=== PATIENT | female | born 2000 | race Caucasian/White ===

== ENCOUNTER 2020-05-12 11:35 | Inpatient (IN) | payer MEDICAID ==
[2020-05-12] MEDS ORDERED: RINGERS SOLUTION,LACTATED 1,000 ML IV ONE (12:07)
[2020-05-12] MEDS ORDERED: RINGERS SOLUTION,LACTATED 1,000 ML IV PRN (12:07)
[2020-05-12 12:47] LABS: ABSOLUTE LYMPHOCYTES (AUTO) 1.8 10^3/uL (0.5-4.7); ABSOLUTE MONOCYTES (AUTO) 0.7 10^3/uL (0.1-1.4); ABSOLUTE NEUT (AUTO) 5.9 10^3/uL (1.7-8.2); BASOPHILS % (AUTO) 0.3 % (0-2); EOSINOPHILS % (AUTO) 0.3 % (0-6); HEMATOCRIT 32.3 % (36.0-47.0); HEMOGLOBIN 11.2 g/dL (12.0-15.5); LYMPHOCYTES % (AUTO) 21.7 % (13-45); MEAN CORPUSCULAR HGB CONC 34.5 g/dL (32.0-36.0); MEAN CORPUSCULAR VOLUME 78 fl (80-97); MONOCYTES % (AUTO) 7.9 % (3-13); PLATELET COUNT 180 10^3/uL (150-450); RED BLOOD COUNT 4.13 10^6/uL (3.72-5.28); RED CELL DISTRIBUTION WIDTH 15.4 % (11.5-14.0); SEGMENTED NEUTROPHILS % (AUTO) 69.8 % (42-78); TOTAL CELLS COUNTED % (AUTO) 100 %; WHITE BLOOD COUNT 8.4 10^3/uL (4.0-10.5)
[2020-05-12] MEDS ORDERED: EPHEDRINE SULFATE INJ 50 MG/1 ML AMPULE ONE (13:45)
[2020-05-12] MEDS ORDERED: ROPIVACAINE HCL 0.2% INJ/PF (2 MG/ML) 20 ML SDV ONE (13:46)
[2020-05-12] MEDS ORDERED: FENTANYL/BUPIVACAINE/NS/PF 300 MCG/150 ML RTUINJ EPI ONE (13:46)
--- NOTE | 2020-05-12 13:46 | Admission Physical ---
Datetime Report Generated by CPN: 05/12/2020 13:45 CURRENT ADMISSION Chief Complaint: Uterine Contractions; Suspected Ruptured Membranes Admit Impression : Term, Intrauterine Admit Plan: Admit to Unit; Initiate Labor Protocol ALLERGIES Medication Allergies: Yes Medication Allergies: amoxicillin (05/12/2020) Latex: No Latex Allergies Food Allergies: n/a Environmental Allergies: n/a OBSTETRICAL HISTORY EDC: 05/22/2020 00:00 : 1 Para: 0 Term: 0 : 0 SAB: 0 IAB: 0 Ectopic: 0 Livin Cesareans: 0 VBACs: 0 Multiple Births: 0 Gestational Diabetes: No Rh Sensitization: No Incompetent Cervix: No GEORGETTE: No Infertility: No ART Treatment: No Uterine Anomaly: No IUGR: No Hx Previous C/S: No Macrosomia: No Hx Loss/Stillborn: No PIH: No Hx : No Placenta Previa/Abruption: No Depression/PP Depression: No PTL/PROM: No Post Hemorrhage: No Current Procedures: Ultrasound Obstetrical History Comments: G1- current - GDM diet controlled SEE RECORDS Alcohol: No Marijuana : No Cocaine: No Other Illicit Drugs: No Cigarettes: Never Smoker. [id number] MEDICAL HISTORY Diabetes: No Diabetes Type: Gestational Diabetes Blood Transfusion: No Pulmonary Disease (Asthma, TB): No Breast Disease: No Hypertension: No Sales Promotion Manager Surgery: No Heart Disease: No Hosp/Surgery: No Autoimmune Disorder: No Anesthetic Complications: No Kidney Disease: No Abnormal Pap Smear: No Neuro/Epilepsy: No Psychiatric Disorders: No Other Medical Diseases: No Hepatitis/Liver Disease: No Significant Family History: No Varicosities/Phlebitis: No Trauma/Violence : No Thyroid Dysfunction: No Medical History Comments: GDM diet controlled INFECTIOUS HISTORY Gonorrhea: No Genital Herpes: No Chlamydia: No Tuberculosis: No Syphilis: No Hepatitis: No HIV/AIDS Exposure: No Rash or Viral Illness: No HPV: No PHYSICAL EXAM General: Normal HEENT: Normal Neurologic: Normal Thyroid: Normal Heart: Normal Lungs: Normal Breast: Normal Back: Normal Abdomen: Normal Genitourinary Exam: Normal Extremities: Normal DTRs: Normal Pelvic Type: Adequate Vital Signs: Reviewed; Within Normal Limits Details Vital Signs: mildly elevated b/p VAGINAL EXAM Dilatation: 4 Effacement: 80 Station: -1 Contraction Comments: Regular contractions Q 5-7 min MEMBRANES Pooling: Positive Membranes: Ruptured Amniotic Fluid Color: Clear FETUS A EGA: 38.4 Monitoring: External US FHR- Baseline: 135 Variability: Moderate 6-25bpm Accelerations: 15X15 Decelerations: None FHR Category: Category I Presentation: Vertex Admit Comment: G1 at 38.4 wks EGA in active labor after SROM at 1110 -Admit to LDR -CEFM and toco -NPO and IVFs: LR at 125cc/hr, after a 1 liter bolus -Reports clear fluid -GBS negative -Desires epidural -Anticipate PLANS FOR LABOR AND DELIVERY Labor and Delivery: None Pain Management: Epidural Feeding Preference: Breast Circumcision: N/A INFORMED CONSENT Informed Consent Obtained: Vaginal Delivery; Section Delivery; Induction of Labor; Vacuum/Forceps Assist; Risks, Benefits and Alternatives Discussed Signature: with User ID: James : with User ID: James
[2020-05-12 13:50] LABS: APPEARANCE,URINE TURBID; BILIRUBIN,URINE NEGATIVE (NEGATIVE); COLOR,URINE RED; GLUCOSE, URINE NEGATIVE (NEGATIVE); KETONES,URINE NEGATIVE (NEGATIVE); LEUKOCYTE ESTERASE,URINE NEGATIVE (NEGATIVE); NITRITE,URINE NEGATIVE (NEGATIVE); PROTEIN,URINE 100 mg/dL (NEGATIVE); URINE SPECIFIC GRAVITY 1.006; UROBILINOGEN,URINE NEGATIVE mg/dL (<2.0)
[2020-05-12 14:11] LABS: URINE AMPHETAMINES SCREEN NEGATIVE; URINE BARBITURATES SCREEN NEGATIVE; URINE BENZODIAZEPINES SCREEN NEGATIVE; URINE COCAINE SCREEN NEGATIVE; URINE MARIJUANA (THC) SCREEN NEGATIVE; URINE METHADONE SCREEN NEGATIVE; URINE PHENCYCLIDINE SCREEN NEGATIVE
[2020-05-12] MEDS ORDERED: OXYTOCIN/0.9 % SODIUM CHLORIDE 30 UNIT/500 ML RTUINJ IV PRN ×2 (15:16→19:38)
[2020-05-12] MEDS ORDERED: MISOPROSTOL 0.2 MG TABLET ONE (15:28)
[2020-05-12] MEDS ORDERED: LIDOCAINE 1% INJ-PF (10 MG/ML) 30 ML SDV ONE (15:28)
[2020-05-12] MEDS ORDERED: OXYTOCIN/0.9 % SODIUM CHLORIDE 30 UNIT/500 ML RTUINJ ONE (15:28)
[2020-05-12] MEDS ORDERED: DIPH/PERTUSS(ACELL)/TETANUS VAC/PF 0.5 ML SYR (>=10YO) IM PRN (19:38)
[2020-05-12] MEDS ORDERED: PSEUDOEPHEDRINE HCL 30 MG TABLET PO PRN (19:38)
[2020-05-12] MEDS ORDERED: MEASLES,MUMPS&RUBELLA VACC/PF 0.5 ML VIAL SUBCUT PRN (19:38)
[2020-05-12] MEDS ORDERED: ACETAMINOPHEN 650 MG SUPP.RECT PR PRN (19:38)
[2020-05-12] MEDS ORDERED: DIPHENHYDRAMINE HCL 25 MG CAPSULE PO PRN (19:38)
[2020-05-12] MEDS ORDERED: MAGNESIUM HYDROXIDE SUSP 30 ML UDCUP PO PRN (19:38)
[2020-05-12] MEDS ORDERED: BENZOCAINE/MENTHOL AEROSOL SPRAY 56 ML TOP PRN (19:38)
[2020-05-12] MEDS ORDERED: ACETAMINOPHEN 325 MG TABLET PO PRN (19:38)
[2020-05-12] MEDS ORDERED: GLYCERIN/WITCH HAZEL LEAF 1 EACH MED..WIPE TP PRN (19:38)
[2020-05-12] MEDS ORDERED: ACETAMINOPHEN WITH CODEINE #3 TABLET PO PRN ×2 (19:38)
[2020-05-12] MEDS ORDERED: PROMETHAZINE HCL INJ 25 MG/1 ML VIAL IV PRN (19:38)
[2020-05-12] MEDS ORDERED: DIBUCAINE 1% OINTMENT 28 GM TP PRN (19:38)
[2020-05-12] MEDS ORDERED: PROMETHAZINE HCL 25 MG TABLET PO PRN (19:38)
[2020-05-12] MEDS ORDERED: ZOLPIDEM TARTRATE 5 MG TABLET PO PRN (19:38)
[2020-05-12] MEDS ORDERED: NA PHOS,M-B/NA PHOS,DI-BA (ADULT) 133 ML ENEMA PR PRN (19:38)
[2020-05-12] MEDS ORDERED: PROMETHAZINE HCL 25 MG SUPP.RECT PR PRN (19:38)
[2020-05-12] MEDS ORDERED: IBUPROFEN 800 MG TABLET PO SCH (19:45)
[2020-05-12] MEDS ORDERED: IBUPROFEN 800 MG TABLET ONE (19:46)
[2020-05-12] MEDS: IBUPROFEN 800 MG TABLET PO SCH (19:50)
[2020-05-12] MEDS ORDERED: ACETAMINOPHEN 1,000 MG/100 ML RTUPB IV PRN (20:30)
[2020-05-12] MEDS ORDERED: ACETAMINOPHEN 1,000 MG/100 ML RTUPB IV ONE (20:36)
[2020-05-12] MEDS ORDERED: CLINDAMYCIN 900 MG/D5W RTU 900 MG/50 ML RTUPB IV ONE (20:36)
[2020-05-12] MEDS ORDERED: CLINDAMYCIN 900 MG/D5W RTU 900 MG/50 ML RTUPB IV SCH (22:00)
[2020-05-12] MEDS: FAMOTIDINE 20 MG TABLET PO SCH (22:31)
[2020-05-13] MEDS: IBUPROFEN 800 MG TABLET PO SCH ×3 (05:05→21:11)
[2020-05-13] MEDS ORDERED: CLINDAMYCIN 900 MG/D5W RTU 900 MG/50 ML RTUPB IV SCH (06:00)
[2020-05-13 08:08] LABS: HEMATOCRIT 32.2 % (36.0-47.0); HEMOGLOBIN 10.8 g/dL (12.0-15.5); MEAN CORPUSCULAR HEMOGLOBIN 26.7 pg (27.0-33.4); MEAN CORPUSCULAR HGB CONC 33.6 g/dL (32.0-36.0); MEAN CORPUSCULAR VOLUME 80 fl (80-97); PLATELET COUNT 174 10^3/uL (150-450); RED BLOOD COUNT 4.05 10^6/uL (3.72-5.28); RED CELL DISTRIBUTION WIDTH 15.6 % (11.5-14.0); WHITE BLOOD COUNT 15.5 10^3/uL (4.0-10.5)
--- NOTE | 2020-05-13 10:08 | PDOC PROGRESS REPORT ---
Subjective-OB Progress Note for:: 05/13/20 - PP Day #1, doing well, UOB, voiding, , AB+., Rubella immune. Physical Exam (OB) Vital Signs: Temp Pulse Resp BP Pulse Ox 98.5 F 71 16 127/73 H 98 05/13/20 08:04 05/13/20 08:04 05/13/20 08:04 05/13/20 08:04 05/13/20 08:04 Intake & Output 05/12/20 05/13/20 05/14/20 06:59 06:59 06:59 Output Total 450 Balance -450 Weight 96.1 kg - General General Appearance: Appears well, Alert In distress: None - PIH/Pre-Eclampsia DTR's: 2 + Clonus: Negative Headache: Absent Epigastric Pain: No Visual Changes: No - Maternal Morbidity 59. Maternal Morbidity (serious complications experinced by the mother associated with labor and delivery: None of the above - Lochia Lochia Amount: Scant < 10 ml Lochia Color: Rubra/Red - Abdomen Description: Soft, Round Hernia Present: No Fundal Description: Firm, Midline Fundal Height: u/u - u/2 - Respiratory Respiratory Status: No respiratory distress - Abdominal Distension: No distension Tenderness: Nontender - Genitourinary Genitourinary Note: voiding - Extremities Upper extremity: Normal inspection Lower extremities: Normal inspection - Neurological Cognition: Normal Orientation: AAOx4 - Psychological Associated symptoms: Normal affect, Normal mood - Skin Skin Temperature: Warm Skin Moisture: Dry Objective-Diagnostic Laboratory: 05/13/20 07:32 05/12/20 05/12/20 05/12/20 12:24 12:24 13:30 WBC 8.4 RBC 4.13 Hgb 11.2 L Hct 32.3 L MCV 78 L MCH 27.0 MCHC 34.5 RDW 15.4 H Plt Count 180 Seg Neutrophils % 69.8 Urine Color RED Urine Appearance TURBID Urine pH 7.0 Ur Specific [place] 1.006 Urine Protein 100 H Urine Glucose (UA) NEGATIVE Urine Ketones NEGATIVE Urine Blood MODERATE H Urine Nitrite NEGATIVE Ur Leukocyte Esterase NEGATIVE Blood Type AB POSITIVE Antibody Screen NEGATIVE 05/13/20 07:32 WBC 15.5 H RBC 4.05 Hgb 10.8 L Hct 32.2 L MCV 80 MCH 26.7 L MCHC 33.6 RDW 15.6 H Plt Count 174 Seg Neutrophils % Urine Color Urine Appearance Urine pH Ur Specific [place] Urine Protein Urine Glucose (UA) Urine Ketones Urine Blood Urine Nitrite Ur Leukocyte Esterase Blood Type Antibody Screen Assessment and Plan(PN) - Assessment and Plan (1) (normal spontaneous vaginal delivery) Is this a current diagnosis for this admission?: Yes - Time Spent with Patient Time with patient: Less than 15 minutes Medications reviewed and adjusted accordingly: Yes - Disposition Anticipated Discharge Disposition: Home, Self Care Anticipated Discharge Timeframe: within 24 hours
[2020-05-13] MEDS: SENNOSIDES/DOCUSATE 8.6-50 MG 1 EACH TABLET PO SCH (11:08)
[2020-05-13] MEDS: FERROUS SULFATE 325 MG TABLET PO SCH ×2 (11:09→17:44)
[2020-05-13] MEDS: FAMOTIDINE 20 MG TABLET PO SCH ×2 (11:09→21:11)
[2020-05-13] MEDS: DOCUSATE SODIUM 100 MG CAPSULE PO SCH ×2 (11:09→17:44)
[2020-05-13] MEDS: PRENATAL VITAMIN W DHA CAPSULE PO SCH (11:09)
[2020-05-14] MEDS: IBUPROFEN 800 MG TABLET PO SCH ×2 (05:18→13:13)
[2020-05-14 07:35] VITALS: BP 117/57
[2020-05-14] MEDS: SENNOSIDES/DOCUSATE 8.6-50 MG 1 EACH TABLET PO SCH (09:23)
[2020-05-14] MEDS: FERROUS SULFATE 325 MG TABLET PO SCH ×2 (09:23→17:16)
[2020-05-14] MEDS: PRENATAL VITAMIN W DHA CAPSULE PO SCH (09:23)
[2020-05-14] MEDS: DOCUSATE SODIUM 100 MG CAPSULE PO SCH ×2 (09:23→17:16)
[2020-05-14] MEDS: FAMOTIDINE 20 MG TABLET PO SCH (09:23)
--- NOTE | 2020-05-14 11:05 | PDOC DISCHARGE SUMMARY ---
Impression - Admit/DC Date/PCP Admission Date/Primary Care Provider: 05/12/20 12:29 TAYLOR CROWELL MD Discharge Date: 05/14/20 - Discharge Diagnosis (1) Obstetrical laceration Is this a current diagnosis for this admission?: Yes (2) (normal spontaneous vaginal delivery) Is this a current diagnosis for this admission?: Yes - Additional Information Discharge Diet: Regular Discharge Activity: Balance Activity w/Rest, Pelvic Rest Referrals: TAYLOR CROWELL MD [Primary Care Provider] - Prescriptions: Pnv72/Iron,Gluc/Folic/Dss/Dha [Citranatal 90 Dha Combo Pack] 1 each PO DAILY #90 combo..pkg Ibuprofen [Motrin 800 mg Tablet] 800 mg PO Q8HP PRN #90 tablet PRN Reason: Home Medications: Ibuprofen [Motrin 800 mg Tablet] 800 mg PO Q8HP PRN #90 tablet 05/14/20 Pnv72/Iron,Gluc/Folic/Dss/Dha [Citranatal 90 Dha Combo Pack] 1 each PO DAILY #90 combo..pkg 05/14/20 Hospital Course 59. Maternal Morbidity (serious complications experinced by the mother associated with labor and delivery: None of the above Results Laboratory Results: WBC 15.5 10^3/uL (4.0-10.5) H 05/13/20 07:32 RBC 4.05 10^6/uL (3.72-5.28) 05/13/20 07:32 Hgb 10.8 g/dL (12.0-15.5) L 05/13/20 07:32 Hct 32.2 % (36.0-47.0) L 05/13/20 07:32 MCV 80 fl (80-97) 05/13/20 07:32 MCH 26.7 pg (27.0-33.4) L 05/13/20 07:32 MCHC 33.6 g/dL (32.0-36.0) 05/13/20 07:32 RDW 15.6 % (11.5-14.0) H 05/13/20 07:32 Plt Count 174 10^3/uL (150-450) 05/13/20 07:32 Lymph % (Auto) 21.7 % (13-45) 05/12/20 12:24 [place] % (Auto) 7.9 % (3-13) 05/12/20 12:24 Eos % (Auto) 0.3 % (0-6) 05/12/20 12:24 Baso % (Auto) 0.3 % (0-2) 05/12/20 12:24 Absolute Neuts (auto) 5.9 10^3/uL (1.7-8.2) 05/12/20 12:24 Absolute Lymphs (auto) 1.8 10^3/uL (0.5-4.7) 05/12/20 12:24 Absolute Monos (auto) 0.7 10^3/uL (0.1-1.4) 05/12/20 12:24 Absolute Eos (auto) 0.0 10^3/uL (0.0-0.6) 05/12/20 12:24 Absolute Basos (auto) 0.0 10^3/uL (0.0-0.2) 05/12/20 12:24 Seg Neutrophils % 69.8 % (42-78) 05/12/20 12:24 Urine Color RED 05/12/20 13:30 Urine Appearance TURBID 05/12/20 13:30 Urine pH 7.0 (5.0-9.0) 05/12/20 13:30 Ur Specific [place] 1.006 05/12/20 13:30 Urine Protein 100 mg/dL (NEGATIVE) H 05/12/20 13:30 Urine Glucose (UA) NEGATIVE mg/dL (NEGATIVE) 05/12/20 13:30 Urine Ketones NEGATIVE mg/dL (NEGATIVE) 05/12/20 13:30 Urine Blood MODERATE (NEGATIVE) H 05/12/20 13:30 Urine Nitrite NEGATIVE (NEGATIVE) 05/12/20 13:30 Urine Bilirubin NEGATIVE (NEGATIVE) 05/12/20 13:30 Urine Urobilinogen NEGATIVE mg/dL (<2.0) 05/12/20 13:30 Ur Leukocyte Esterase NEGATIVE (NEGATIVE) 05/12/20 13:30 Urine Ascorbic Acid NEGATIVE (NEGATIVE) 05/12/20 13:30 Urine Opiates Screen NEGATIVE 05/12/20 13:30 Urine Methadone Screen NEGATIVE 05/12/20 13:30 Ur Barbiturates Screen NEGATIVE 05/12/20 13:30 Ur Phencyclidine Scrn NEGATIVE 05/12/20 13:30 Ur Amphetamines Screen NEGATIVE 05/12/20 13:30 U Benzodiazepines Scrn NEGATIVE 05/12/20 13:30 Urine Cocaine Screen NEGATIVE 05/12/20 13:30 U Marijuana (THC) Screen NEGATIVE 05/12/20 13:30 RPR NONREACTIVE (NONREACTIVE) 05/12/20 12:24 Blood Type AB POSITIVE 05/12/20 12:24 Antibody Screen NEGATIVE 05/12/20 12:24 Plan Plan of Treatment: follow up in 4 weeks at [facility] for post check
--- NOTE | 2020-05-15 15:39 | Delivery Summary ---
Del Sum A-C Datetime Report Generated by CPN: 05/15/2020 15:39 DELIVERY PERSONNEL DELIVERY PERSONNEL: [id number] Delivery Doctor:: Lynnette Camarillo MD Labor and Delivery Nurse:: Lynn Padilla RN Nursery Nurse:: Nakia Landon RN Seaman Officer/MOLD TECHNICIAN: Sarina Wilkerson, CAR WASH MANAGER Seaman Officer/MOLD TECHNICIAN: Majo Edis, CAR WASH MANAGER MATERNAL INFORMATION Delivery Anesthesia: Epidural Medications After Delivery: Pitocin 30 Units in 500ml NS/D5W Estimated Blood Loss (ml): 150 Delivery QBL: 150 Maternal Complications: None Provider Comments: Called to patients room as she was C/C/+3. Jensen removed. Patient pushed for approximately 1.5 hours and delivered a viable female . After delivery of the head, the shoulders were delayed and as the right should came under the pubic bone a snap was heard. Olimpia was implemented and the shoulders and rest of the body was delivered. The infant was moving both arms. was attempting to cry and was oral and nasal suctioned. Cord was clamped, cut and handed off to the Nursery staff for further suctioning and management. Afterwards the baby was placed skin to skin with Mother. Both were stable. Fundus firm. LABOR SUMMARY EDC: 05/22/2020 00:00 No. Babies in Womb: 1 Attempted: No Labor Anesthesia: Epidural LABOR INFORMATION Reason for Induction: Not Applicable Onset of Labor: 05/12/2020 11:10 Complete Dilatation: 05/12/2020 17:27 Oxytocin: Augmentation Group B Beta Strep: negative (Annotations: Data stored by CPN on behalf of user) Steroids Given: None Reason Steroids Not Administered: Not Applicable MEMBRANES Membranes Rupture Method: Spontaneous Rupture of Membranes: 05/12/2020 11:10 Length of Rupture (hr): 7.75 Amniotic Fluid Color: Clear Amniotic Fluid Amount: Moderate Amniotic Fluid Odor: Normal STAGES OF LABOR Stage 1 hr: 6 Stage 1 min: 17 Stage 2 hr: 1 Stage 2 min: 28 Stage 3 hr: 0 Stage 3 min: 5 Total Time in Labor hr: 7 Total Time in Labor min: 50 VAGINAL DELIVERY Episiotomy: None Laceration #1: Vaginal Laceration Extension #1: First Degree Other Laceration: bilateral vaginal tears Laceration Repair: Yes Laceration Repair Note: Repaired with 3-0 chromic on an SH needle Sponge Count Correct: Yes Sharps Count Correct: Yes CSECTION DELIVERY Primary Indication: N/A Secondary Indication: N/A CSection Incidence: N/A Labor: N/A Elective: N/A CSection Incision: N/A BABY A INFORMATION Infant Delivery Date/Time: 05/12/2020 18:55 Method of Delivery: Vaginal Method of Delivery: Vaginal Nurse Controlled Delivery: No Born in Route : No : N/A Forceps: N/A Vacuum Extraction: N/A Shoulder Dystocia : Yes SHOULDER DYSTOCIA BABY A Delivery of Head: 05/12/2020 18:54 Time Head to Delivery : 1.0 1st Intervention to Resolve: Gentle Attempt at Traction, Assisted by Maternal Expulsive Efforts 2nd Intervention to Resolve: McRobert's Maneuver Verify NO Fundal Pressure: No Fundal Pressure Applied Arm Under Symphisis at Del: Right PRESENTATION/POSITION BABY A Presentation: Cephalic Cephalic Presentation: Vertex Vertex Position: Left Occipital Anterior Breech Presentation: N/A PLACENTA INFORMATION BABY A Placenta Delivery Time : 05/12/2020 19:00 Placenta Method of Delivery: Spontaneous Placenta Method of Delivery: Spontaneous Placenta Status: Delivered SCORES BABY A Heart Rate 1 min: >100 bpm Resp Effort 1 min: Good Cry Reflex Irritability 1 min: Cough or Sneeze or Pulls Away Muscle Tone 1 min: Some Flexion of Extremities Color 1 min: Blue/Pale Resuscitation Effort 1 min: Tactile Stimulation SCORE 1 MIN: 7 Heart Rate 5 min: >100 bpm Resp Effort 5 min: Good Cry Reflex Irritability 5 min: Cough or Sneeze or Pulls Away Muscle Tone 5 min: Active Motion Color 5 min: Body [place], Extremities Blue Resuscitation Effort 5 min: N/A SCORE 5 MIN: 9 INFANT INFORMATION BABY A Gestational Age at Delivery: 38.4 Gestational Status: Early Term- 37- 38.6 Weeks Outcome : Liveborn Infant Condition : Stable Sex: Female Infant Sex: Female IDENTIFICATION BABY A Verification Date/Time: 05/12/2020 19:26 ID Band Number: [id number] Mother's Name Verified: Yes Infant RN Verifying Infant: Ashley yanez HALLEY Additional Verifying Personnel: Michelle Blum RN WEIGHT/LENGTH BABY A Birthweight (gm): 3682 Weight (lb): 8 Infant Weight (oz): 2 Length (in): 21.00 Length (cm): 53.34 CORD INFORMATION BABY A No. Cord Vessels: 3 Nuchal Cord : Around Neck x1, Loose Cord Blood Taken: Yes-For Storage (Mom's Blood type +) Infant Suction: None ASSESSMENT BABY A Physical Findings at Delivery: Bruising Respirations: Appears Normal Skin to Skin: Yes Skin to Skin: Yes Addressing Machine Operator/ALS Called : No Care By: Erik Landon RN Transferred To: Remains with Mother BABY B INFORMATION : N/A SIGNATURES Signature: with User ID: James : with User ID: [email or web address]
== END 2020-05-14 19:19 | disposition home or self-care (01) | DRG 807 ==
LOC: LC 11:35 → LR 12:29 → 2S 21:35
PROVIDERS: ADMIT Obstetrics & Gynecology; ATTEND Obstetrics & Gynecology
PROC: 10E0XZZ Delivery of Products of Conception, External Approach (ICD-10-PCS; principal; 2020-05-12)
PROC: 0HQ9XZZ Repair Perineum Skin, External Approach (ICD-10-PCS; 2020-05-12)
DX: O24.420 Gestational diabetes mellitus in childbirth, diet controlled (principal); Z37.0 Single live birth; O70.0 First degree perineal laceration during delivery; O69.81X0 Labor and delivery complicated by cord around neck, without compression, not applicable or unspecified; Z3A.38 38 weeks gestation of pregnancy; Z88.0 Allergy status to penicillin
CPT/HCPCS: 1967; 36415; 80307; 81005; 85025; 85027; 86592; 86850; 86900; 86901; J0131; J2590; J2795; J3010; J3490